=== PATIENT | female | born 1960 | race Caucasian/White ===

== ENCOUNTER 2016-09-13 19:04 | Emergency (ER) | payer OTHER ==
[2016-09-13 19:25] VITALS: BMI 27.6
[2016-09-13] MEDS ORDERED: ONDANSETRON HCL 4 MG/2 ML VIAL IV ONE (19:47)
[2016-09-13] MEDS ORDERED: NS 1,000 ML IV ONE (19:47)
[2016-09-13] MEDS ORDERED: MORPHINE 4 MG/ML INJECTION IV ONE (19:47)
[2016-09-13 20:09] LABS: AUTOMATED EOSINOPHIL 3.8 % (0-5); AUTOMATED LYMPH 33.9 % (17-44); AUTOMATED MONOCYTE 7.3 % (3-10); MPV 8.2 fL (7.4-10.4)
[2016-09-13 20:19] LABS: BLOOD UREA NITROGEN 19 MG/DL (7-17); CALC CORRECTED 9.7 MG/DL (8.4-10.2); CALCULATED OSMOLALITY 268 MOs/Kg (270-290); CHLORIDE 106 mEq/L (98-107); GLUCOSE 91 MG/DL (70-99); SODIUM LEVEL 138 mEq/L (137-146); TOTAL PROTEIN 6.1 G/DL (6.3-8.2)
[2016-09-13 20:27] LABS: RBC/URINE 0-2 (0-5); WBC/URINE 0-2 (0-5)
[2016-09-13 20:28] LABS: LEUKOCYTES/URINE NEG (NEGATIVE); NITRITE/URINE NEG (NEGATIVE); URINE OCCULT BLOOD NEG (NEG/TRACE)
--- NOTE | 2016-09-13 20:47 | EDPRACDOC ---
- General Information Chief Complaint: Bleeding (Rectal &/or other) Stated Complaint: RECTAL BLEEDING Time Seen by Provider: 09/13/16 19:30 Mode of Arrival: Car Home Medications: Home Medications Bupropion HCl [Wellbutrin] 450 mg PO DAILY 10/10/12 Estrogens,Conjugated [Premarin] 1.25 mg PO DAILY 10/10/12 Famotidine [Pepcid AC] 20 mg PO DAILY 10/10/12 Fluticasone/Salmeterol [Advair 250-50 Diskus] 1 puff INH BID 10/10/12 Levothyroxine Sodium [Synthroid] 125 mcg PO DAILY 10/10/12 Montelukast Sodium [Singulair] 10 mg PO DAILY 10/10/12 Triamcinolone [Nasacort Aq Nasal [place]] 1 spray ABELARDO BID 10/10/12 Valsartan [Diovan] 160 mg PO DAILY 10/10/12 Atorvastatin Calcium [Lipitor] 20 mg PO DAILY 03/29/15 Multivitamins,Ther W-Minerals [Vitamin and Minerals] 1 tab PO DAILY 03/29/15 Omeprazole 20 mg PO BID 12/03/15 Ciprofloxacin HCl [Cipro] 500 mg PO BID #20 tab 09/13/16 Ketoprofen 50 mg PO BID PRN #20 capsule 09/13/16 Metronidazole [Flagyl] 500 mg PO TID #30 tab 09/13/16 Ondansetron [Zofran Odt] 4 mg PO TID PRN #10 tab.rapdis 09/13/16 Allergies/Adverse Reactions: Allergies Allergy/AdvReac Type Severity Reaction Status Date / Time dexlansoprazole Allergy Unknown Verified 09/13/16 19:25 [From Dexilant] - History of Present Illness Onset: Wednesday HPI: C/o episodes of cramping RLQ and LLQ pain and rectal bleeding. 1 time wednesday, 1 time wednesday and 3 x today. Blood in bowl is bright red. Denies fever, cp, sob , N?V/D, chnage in urine. Hx of divertivculitis, but pt states she has never bled before in prviosu episodes. CT abdo/pelvis 08/04 POS for diverticulosis. Last colonscopy 04/2016. Surgical hx= perfed bowel, carlos, appy, incacerated intestine, hysterectomy. Med hx = HTN, ashtma, hypothyroid, depression. Bleeding Duration: Reports: Intermittent Bleeding Description: Reports: After Bowel Movement Recent Use Of: Reports: None Relevant History: Reports: Other (diverticulitis) Prehospital Care: Reports: None Pain Severity: None Amount of Blood: Reports: Cups Vomitus: Reports: None Stools: Reports: Bright Red Blood (in bowl), Blood on Tissue Paper Associated Signs and Symptoms: Reports: None ED Past Medical History - History Reviewed Yes Nurses notes reviewed and agree except as marked - Patient Medical History Cardiac History: Reports: Hypertension Respiratory History: Reports: Asthma GI/ History: Reports: Diverticulosis Psychological History: Reports: Depression, Anxiety Systemic History: Reports: Anemia, Hypothyroidism. Denies: Cancer Surgical History: Reports: Appendectomy, Cholecystectomy, Hysterectomy - Family Medical History Reports: Hypertension (Father), Stroke (Maternal G-Mother), Cardiac Disorders ( both parents) - Social Medical History Smoking Status: Never smoker EDM Review of Systems - Review of Systems ROS Negative Except as Marked: Yes All systems reviewed and were negative except as marked Gastrointestinal: Pain, Other (rectal bleeding) - Physical Exam Constitutional: No apparent distress, Alert Oriented to: Time, Person, Place Last recorded Vital Signs: Last Vital Signs Temp 97.7 F 09/13/16 19:19 Pulse 89 09/13/16 19:19 Resp 18 09/13/16 19:19 BP 152/73 09/13/16 19:19 Pulse Ox 98 09/13/16 19:19 Oxygen Pulse Oxygen Saturation 98 O2 Device Room Air Oxygen Flow Rate Fraction of Inspired Oxygen ( FIO2) - HEENT Head: Normal Eye Exam: negative: Conjunctival Injection, Scleral Icterus Oropharynx: negative: Drooling TMJ: Normal Nose: No Symptoms Reported Neck: Normal - Respiratory/Cardiovascular Respiratory: Normal - CTA Cardiovascular: Normal - GI Auscultation: Normal Palpation: Normal Tenderness: Mild, RLQ, LLQ Hussein's Sign: Negative Rectal Exam: Blood, Rectal Tone, Other (guaic POS) - Musculoskeletal Back: Normal Extremities: Normal - Integumentary Skin: Normal - Neurologic Mood Description: Normal Thought: Coherent Perception: Normal - Results 09/13/16 20:00 09/13/16 20:00 WBC 9.0 xk/uL (3.8-10.8) 09/13/16 20:00 RBC 4.34 xM/uL (4.20-5.40) 09/13/16 20:00 Hgb 13.1 g/dL (12.0-16.0) 09/13/16 20:00 Hct 38.4 % (36-47) 09/13/16 20:00 MCV 88 fL (81-99) 09/13/16 20:00 MCH 30.3 pg (27-32) 09/13/16 20:00 MCHC 34.2 g/dl (33-36) 09/13/16 20:00 RDW 13.1 % (11.5-14.5) 09/13/16 20:00 Plt Count 269 xk/uL (130-400) 09/13/16 20:00 MPV 8.2 fL (7.4-10.4) 09/13/16 20:00 Neut % (Auto) 54.0 % (45-76) 09/13/16 20:00 Lymph % (Auto) 33.9 % (17-44) 09/13/16:00 Piatt % (Auto) 7.3 % (3-10) 09/13/16 20:00 Eos % (Auto) 3.8 % (0-5) 09/13/16 20:00 Baso % (Auto) 1.0 % (0-2) 09/13/16 20:00 Absolute Neuts (auto) 4.86 xk/uL (1.7-8.2) 09/13/16 20:00 Absolute Lymphs (auto) 2.97 xk/uL (0.65-4.75) 09/13/16 20:00 Sodium 138 mEq/L (137-146) 09/13/16 20:00 Potassium 4.0 mEq/L (3.5-5.1) 09/13/16 20:00 Chloride 106 mEq/L (98-107) 09/13/16 20:00 Carbon Dioxide 25 mMOL/L (22-33) 09/13/16 20:00 Anion Gap 11 mEq/L (8-16) 09/13/16 20:00 BUN 19 MG/DL (7-17) H 09/13/16 20:00 Creatinine 0.80 MG/DL (0.52-1.04) 09/13/16 20:00 Estimated GFR (MDRD) > 60 mL/min (>=60) 09/13/16 20:00 Glucose 91 MG/DL (70-99) 09/13/16 20:00 Calculated Osmolality 268 MOs/Kg (270-290) L 09/13/16 20:00 Calcium 9.0 MG/DL (8.4-10.2) 09/13/16 20:00 Corrected Calcium 9.7 MG/DL (8.4-10.2) 09/13/16 20:00 Total Bilirubin 0.3 MG/DL (0.2-1.3) 09/13/16 20:00 AST 21 IU/L (14-36) 09/13/16 20:00 ALT 33 IU/L (9-52) 09/13/16 20:00 Alkaline Phosphatase 75 IU/L (38-126) 09/13/16 20:00 Total Protein 6.1 G/DL (6.3-8.2) L 09/13/16 20:00 Albumin 3.3 G/DL (3.5-5.0) L 09/13/16 20:00 Lipase 63 U/L (23-300) 09/13/16 20:00 Urine Color Yellow 09/13/16 20:15 Urine Clarity Clear 09/13/16 20:15 Urine pH 7.0 (5.0-8.0) 09/13/16 20:15 Ur Specific [place] 1.005 (1.003-1.035) 09/13/16 20:15 Urine Protein Neg (NEG/TRACE) 09/13/16 20:15 Urine Glucose (UA) Neg (NEGATIVE) 09/13/16 20:15 Urine Ketones Neg (NEGATIVE) 09/13/16 20:15 Urine Occult Blood Neg (NEG/TRACE) 09/13/16 20:15 Urine Nitrite Neg (NEGATIVE) 09/13/16 20:15 Urine Bilirubin Neg (NEGATIVE) 09/13/16 20:15 Urine Urobilinogen 0.2 MG/DL (0-1) 09/13/16 20:15 Ur Leukocyte Esterase Neg (NEGATIVE) 09/13/16 20:15 Urine RBC 0-2 (0-5) 09/13/16 20:15 Urine WBC 0-2 (0-5) 09/13/16 20:15 Urine Bacteria Few (NEG/FEW) 09/13/16 20:15 Urine Mucus Occ (NEG/OCC) 09/13/16 20:15 Lab Results 09/13/16 09/13/16 09/13/16 20:15 20:00 20:00 WBC 9.0 RBC 4.34 Hgb 13.1 Hct 38.4 MCV 88 MCH 30.3 MCHC 34.2 RDW 13.1 Plt Count 269 MPV 8.2 Neut % (Auto) 54.0 Lymph % (Auto) 33.9 Piatt % (Auto) 7.3 Eos % (Auto) 3.8 Baso % (Auto) 1.0 Absolute Neuts (auto) 4.86 Absolute Lymphs (auto) 2.97 Sodium 138 Potassium 4.0 Chloride 106 Carbon Dioxide 25 Anion Gap 11 BUN 19 H Creatinine 0.80 Estimated GFR (MDRD) > 60 Glucose 91 Calculated Osmolality 268 L Calcium 9.0 Corrected Calcium 9.7 Total Bilirubin 0.3 AST 21 ALT 33 Alkaline Phosphatase 75 Total Protein 6.1 L Albumin 3.3 L Lipase 63 Urine Color Yellow Urine Clarity Clear Urine pH 7.0 Ur Specific [place] 1.005 Urine Protein Neg Urine Glucose (UA) Neg Urine Ketones Neg Urine Occult Blood Neg Urine Nitrite Neg Urine Bilirubin Neg Urine Urobilinogen 0.2 Ur Leukocyte Esterase Neg Urine RBC 0-2 Urine WBC 0-2 Urine Bacteria Few Urine Mucus Occ Decision Time to Discharge: 20:54 - Departure Disposition: Home Condition: Stable Final Diagnosis: Rectal bleeding Diverticulitis Qualifiers: Diverticulitis site: unspecified part of intestinal tract Diverticulitis bleeding: with bleeding Instructions: Diverticulitis (ED), Diverticulosis (ED), Rectal Bleeding (ED) Education/Counseling Given To: Patient Education/Counseling Given Regarding: Diagnosis, Treatment, Prognosis, Follow Up Referrals: Kelley Parker DO [Primary Care Provider] - One Week Prescriptions: Ciprofloxacin HCl [Cipro] 500 mg PO BID #20 tab Ketoprofen 50 mg PO BID PRN #20 capsule PRN Reason: Pain Metronidazole [Flagyl] 500 mg PO TID #30 tab Ondansetron [Zofran Odt] 4 mg PO TID PRN #10 tab.rapdis PRN Reason: Nausea/Vomiting Additional Instructions: Follow up with primary care for rectal bleed. Take cipro and flagyl as directed for diverticulitis. Return to ED for any new or worsening symptoms.
[2016-09-13] MEDS ORDERED: METRONIDAZOLE 500 MG TAB PO ONE (21:15)
[2016-09-13] MEDS ORDERED: CIPROFLOXACIN HCL 500 MG TAB PO ONE (21:16)
[2016-09-13 21:35] VITALS: BP 145/82; PULSE 93; TEMP 98.4
== END 2016-09-13 21:33 | disposition home or self-care (01) ==
LOC: ED 19:04
DX: K62.5 Hemorrhage of anus and rectum (principal)
CPT/HCPCS: 36415; 80053; 81001; 83690; 85025; 99283; J3490